=== PATIENT | male | born 1965 | race Two or more races ===

== ENCOUNTER 2017-05-28 09:54 | Day surgery (SDC) | payer SELFPAY ==
[~2017-05-28 09:54] MED LIST: Dexamethasone 4 MG/ML 5 ML MDV ONE; Lactated Ringers 1,000 ML IV SCH; Lidocaine 1% 4 ML ONE; Lidocaine 1%/Sod Bicarbonate in NS 8.4% 1 ML Syringe IV PRN; Midazolam 1 MG/ML 2 ML SDV ONE; Ondansetron 4 MG/2 ML SDV ONE; Propofol 200 MG/20 ML SDV ONE; Sodium Chloride 0.9% 10 ML Syringe FLUSH PRN; fentaNYL 100 MCG/2 ML SDV ONE
--- NOTE | 2017-05-28 10:39 | PCM.PREANE ---
Preanesthetic Assessment - Anesthesia/Transfusion/Family Hx Anesthesia History: Prior Anesthesia Without Reaction Family History of Anesthesia Reaction: No Transfusion History: No Prior Transfusion(s) - Review of Systems General: No Symptoms Pulmonary: No Symptoms Cardiovascular: No Symptoms Gastrointestinal: No Symptoms Neurological: No Symptoms Other: Reports: None - Physical Assessment NPO Status Date: 05/27/17 NPO Status Time: 00:00 Pulse: 109 O2 Sat by Pulse Oximetry: 95 Respiratory Rate: 20 Blood Pressure: 169/99 Temperature: 37.9 C Height: 1.65 m Weight: 154 kg ASA Class: 2 Mental Status: Alert & Oriented x3 Airway Class: Mallampati = 1 Dentition: Reports: Normal Dentition Thyro-Mental Finger Breadths: 3 Mouth Opening Finger Breadths: 3 ROM/Head Extension: Full Lungs: Clear to Auscultation, Normal Respiratory Effort Cardiovascular: Regular Rate, Regular Rhythm, No Murmurs - Lab Values: on chart - Imaging/EKG Impressions: EKG Sinus Rhythm with nonspecific T wave abnormality 05/27/2017 - Allergies Allergies/Adverse Reactions: Allergies Allergy/AdvReac Type Severity Reaction Status Date / Time No Known Allergies Allergy Verified 05/28/17 09:21 - Blood Blood Available: No Product(s) Available: None - Anesthesia Plan Pre-Op Medication Ordered: None - Acknowledgements Anesthesia Type Planned: General Anesthesia Pt an Appropriate Candidate for the Planned Anesthesia: Yes Alternatives and Risks of Anesthesia Discussed w Pt/Guardian: Yes Pt/Guardian Understands and Agrees with Anesthesia Plan: Yes PreAnesthesia Questionnaire - SUBSTANCE USE Smoking Status *Q: Never Smoker Tobacco Use Within Last Twelve Months: No Second Hand Smoke Exposure: Yes Days Per Week of Alcohol Use: 1 Number of Drinks Per Day: 6 Total Drinks Per Week: 6 Recreational Drug Use History: No - HOME MEDS Home Medications: Home Meds Acetaminophen/HYDROcodone [Garland 325-5 MG] 1 tab PO Q4HR PRN 05/28/17 [History] Ibuprofen [Advil] 400 mg PO Q6H PRN 05/28/17 [History] - CURRENT (IN HOUSE) MEDS Current Meds: Current Medications Lactated Ringer's (Ringers, Lactated) 1,000 mls @ 125 mls/hr IV ASDIRECTED MAEVE Stop: 05/28/17 23:00 Lidocaine/Sodium Bicarbonate (Buffered Lidocaine 1% In Ns 8.4%) 0.25 ml IV ONETIME PRN PRN Reason: Prior to IV Start Stop: 05/28/17 18:00 Sodium Chloride (Saline Flush) 10 ml FLUSH ASDIRECTED PRN PRN Reason: Keep Vein Open Stop: 05/28/17 18:00 Discontinued Medications Dexamethasone (Dexamethasone) Confirm Administered Dose 20 mg .ROUTE .STK-MED ONE Stop: 05/28/17 09:04 Fentanyl (Sublimaze) Confirm Administered Dose 100 mcg .ROUTE .STK-MED ONE Stop: 05/28/17 09:05 Lidocaine HCl (Xylocaine-Mpf 1%) Confirm Administered Dose 4 mls @ as directed .ROUTE .STK-MED ONE Stop: 05/28/17 09:04 Midazolam HCl (Versed 1 Mg/Ml) Confirm Administered Dose 2 mg .ROUTE .STK-MED ONE Stop: 05/28/17 09:05 Ondansetron HCl (Zofran) Confirm Administered Dose 4 mg .ROUTE .STK-MED ONE Stop: 05/28/17 09:04 Propofol (Diprivan 20 Ml) Confirm Administered Dose 200 mg .ROUTE .STK-MED ONE Stop: 05/28/17 09:04
[2017-05-28] MEDS ORDERED: Ondansetron 4 MG/2 ML SDV IVPUSH ONE (11:05)
[2017-05-28] MEDS ORDERED: fentaNYL 100 MCG/2 ML SDV ONE (11:11)
[2017-05-28] MEDS ORDERED: HYDROmorphone 1 MG/ML Syringe ONE (11:11)
[2017-05-28] MEDS ORDERED: Propofol 200 MG/20 ML SDV ONE (12:36)
[2017-05-28] MEDS ORDERED: Succinylcholine 200 MG/10 ML MDV ONE (12:41)
[2017-05-28] MEDS ORDERED: Albuterol 6.7 GM Inhaler INH ONE (12:41)
[2017-05-28] MEDS ORDERED: Ondansetron 4 MG/2 ML SDV IVPUSH PRN (12:41)
[2017-05-28] MEDS ORDERED: fentaNYL 100 MCG/2 ML SDV IVPUSH PRN (12:41)
[2017-05-28] MEDS ORDERED: HYDROmorphone 0.5 MG/0.5 ML Syringe IVPUSH PRN (12:41)
[2017-05-28] MEDS ORDERED: Lactated Ringers 1,000 ML ONE (12:59)
--- NOTE | 2017-05-28 13:14 | PCM.POSTAN ---
POST ANESTHESIA ASSESSMENT - MENTAL STATUS Mental Status: Alert - VITAL SIGNS Pulse Rate: 106 SaO2: 96 Resp Rate: 12 Blood Pressure: 161/94 Temperature: 100.0 C - RESPIRATORY Respiratory Status: Respiratory Rate WNL, Airway Patent, O2 Saturation Stable, Supplemental Oxygen - CARDIOVASCULAR CV Status: Pulse Rate WNL, Blood Pressure Stable - GASTROINTESTINAL GI Status: No Symptoms - POST OP HYDRATION Hydration Status: Adequate & Stable
--- NOTE | 2017-05-28 13:41 | PCM48HPAN ---
Post Anesthesia Note - EVALUATION WITHIN 48HRS OF ANESTHETIC Vital Signs in Normal Range: Yes Patient Participated in Evaluation: Yes Respiratory Function Stable: Yes Airway Patent: Yes Cardiovascular Function Stable: Yes Hydration Status Stable: Yes Pain Control Satisfactory: Yes Nausea and Vomiting Control Satisfactory: Yes Mental Status Recovered: Yes
[2017-05-28] MEDS ORDERED: Acetaminophen/HYDROcodone 325-5 MG Tab PO ONE (13:56)
--- NOTE | 2017-05-28 15:06 | CR ---
Right tibia and fibula: Multiple fluoroscopic spot views were obtained of the right tibia and fibula utilizing C-arm device. Fractures are seen within the distal one-third diaphysis of the tibia and fibula. Study shows reduction with placement of plaster cast. Fluoroscopy time given as 30.1 seconds. Slightly less than one-half shaft width displacement noted within the fibula fracture and tibial fracture appearing minimally displaced in an anterior to posterior direction on the post reduction study. Impression: 1. Reduction of fractures within the distal tibia and fibula. 2. Placement of fiberglass cast. Diagnostic code #2
--- NOTE | 2017-06-02 06:59 | PCM.OPNOTE ---
- General Post-Op/Procedure Note Date of Surgery/Procedure: 05/28/17 Operative Procedure(s): closed reduction with manipulation and long leg casting right tibial shaft fracture Pre Op Diagnosis: closed right distal tibial shaft fracture Post-Op Diagnosis: Same Anesthesia Technique: General LMA Primary Surgeon: Alton Hendrix Anesthesia Provider: Manjula Rice Poiser: Brinda Kimball in mLs: 0 Complications: None Condition: Good
--- NOTE | 2017-06-02 08:39 | OR ---
DATE OF OPERATION: 05/28/2017 SURGEON: Alton Hendrix MD OPERATION PERFORMED: Closed reduction with manipulation, long-leg casting right distal tibial shaft fracture. PREOPERATIVE DIAGNOSIS: Closed right distal tibial shaft fracture. POSTOPERATIVE DIAGNOSIS: Closed right distal tibial shaft fracture. ANESTHESIA: General LMA. ANESTHESIA PROVIDER: Manjula Rice CRNA. MINER PLACER: Brinda Kimball PA-C. ESTIMATED BLOOD LOSS: Not applicable. COMPLICATIONS: None. CONDITION: Stable. DESCRIPTION OF PROCEDURE: The patient was identified in the preoperative holding area, and proper site was marked and identified by the surgeon. The patient was taken back to the operating theater, where after adequate anesthesia, the right lower extremity was identified. A time-out was performed. At this time, the patient was noted to have a fracture blister on the distal medial aspect of the tibial shaft. A Telfa dressing was placed over the top of this. At this time, undercast padding as well as cotton padding were then placed. A first layer of cast material was then applied for a long-leg cast and manipulation was done of the distal tibia to get it out of extension, procurvatum out of recurvatum. There was no significant varus or valgus malalignment and in both AP and lateral views, it was within acceptable less than 10 degrees angulation. At this time, a second layer of cast padding was applied and mold was held. The patient's knee was molded in 30 degrees of flexion roughly. All bony prominences were well padded. The cast was found to be adequate and there was adequate reduction at this time. The patient was sent to the PACU in stable condition. MMODAL /[id number]
== END 2017-05-28 15:45 | disposition home or self-care (01) ==
LOC: JD.SDS 09:54
PROVIDERS: ATTEND Orthopaedic Surgery
DX: S82.301A Unspecified fracture of lower end of right tibia, initial encounter for closed fracture (principal); W19.XXXA Unspecified fall, initial encounter; Z98.890 Other specified postprocedural states; Z79.899 Other long term (current) drug therapy
CPT/HCPCS: 27825; 76000; A9270; J0330; J1100; J1170; J2250; J2405; J3010; J7120; 01462; J2704